=== PATIENT | male | born 1990 | race Caucasian/White ===

== ENCOUNTER 2024-11-29 13:41 | Emergency (ER) | payer BC ==
[2024-11-29] MEDS: Lidocaine/Epineph/Tetracaine 3 ML Syringe TOP ONE (14:57)
[2024-11-29] MEDS: Acetaminophen/HYDROcodone 325-5 MG Tab PO ONE (14:57)
[2024-11-29 15:06] VITALS: BP 118/86; PULSE 76
== END 2024-11-29 15:06 | disposition home or self-care (01) ==
LOC: MW.ED 13:41
DX: L03.114 Cellulitis of left upper limb (principal); Z79.899 Other long term (current) drug therapy; Z75.3 Unavailability and inaccessibility of health-care facilities
CPT/HCPCS: 99283; A9270